=== PATIENT | female | born 1970 | race Caucasian/White ===

== ENCOUNTER 2023-07-29 07:28 | Outpatient (CLI) | payer OTHER, SELFPAY | END 2023-07-29 07:29 | disposition home or self-care (01) | PROVIDERS: PCP Family Medicine; Visit Provider Family Medicine | DX: E78.2 Mixed hyperlipidemia (principal); E66.01 Morbid (severe) obesity due to excess calories; Z68.43 Body mass index [BMI] 50.0-59.9, adult; Z11.59 Encounter for screening for other viral diseases | CPT/HCPCS: 80053; 80061; 82306; 84443; 86803 ==

== ENCOUNTER 2023-10-30 08:46 | Outpatient (CLI) | payer OTHER, SELFPAY | END 2023-10-30 08:47 | disposition home or self-care (01) | LOC: FRMREF 08:46 | PROVIDERS: PCP Family Medicine; Visit Provider Family Medicine | DX: E11.9 Type 2 diabetes mellitus without complications (principal); Z79.84 Long term (current) use of oral hypoglycemic drugs | CPT/HCPCS: 82043; 82570; 83036 ==

== ENCOUNTER 2024-01-28 14:55 | Outpatient (CLI) | payer OTHER, SELFPAY ==
--- NOTE | 2024-01-28 15:20 | CRLHL7_ITS ---
For Patients: As a result of the Century Cures Act, medical imaging exams and procedure reports are released immediately into your electronic medical record. You may view this report before your referring provider. If you have questions, please contact your health care provider. BILATERAL SCREENING MAMMOGRAM WITH COMPUTER-AIDED DETECTION AND TOMOSYNTHESIS TECHNIQUE: CC and MLO views were obtained. These mammographic images have been obtained using full-field digital technique. These mammographic images were interpreted with the benefit of computer-aided detection. Breast tomosynthesis was used in this interpretation. COMPARISON FILM: No comparison available. This is a new baseline study. FINDINGS: There are scattered areas of fibroglandular density. IMPRESSION: There is no radiographic evidence for malignancy. ASSESSMENT: BI-RADS Category 1: Negative RECOMMENDATION: Routine screening mammogram in 1 year. A lay language report of this examination will be provided to the patient. ELAN ANGEL M.D. Diagnostic Radiologist [email or web address] Transcribed: 2:[address]/Dictated by: Elan Angel MD @ 01/30/2024 9:13:00 AM (Electronically Signed)
== END 2024-01-28 14:56 | disposition home or self-care (01) ==
LOC: MAMMO 14:56
PROVIDERS: PCP Family Medicine; Visit Provider Family Medicine
DX: Z12.31 Encounter for screening mammogram for malignant neoplasm of breast (principal)
CPT/HCPCS: 77063; 77067

== ENCOUNTER 2024-01-29 12:56 | Outpatient (CLI) | payer OTHER, SELFPAY | END 2024-01-29 12:57 | disposition home or self-care (01) | LOC: NFLDREF 01-31 08:23 | PROVIDERS: PCP Family Medicine; Referring Provider Family Medicine; Visit Provider Family Medicine | DX: N30.00 Acute cystitis without hematuria (principal); N39.0 Urinary tract infection, site not specified; E11.9 Type 2 diabetes mellitus without complications | CPT/HCPCS: 87086; 87186 ==

== ENCOUNTER 2024-05-03 08:45 | Outpatient (CLI) | payer OTHER, SELFPAY | END 2024-05-03 08:46 | disposition home or self-care (01) | LOC: FRMREF 08:46 | PROVIDERS: PCP Family Medicine; Visit Provider Family Medicine | DX: E55.9 Vitamin D deficiency, unspecified (principal) | CPT/HCPCS: 82306 ==

== ENCOUNTER 2024-07-30 09:15 | Outpatient (RCR) | payer OTHER, SELFPAY | END 2024-10-27 07:49 | disposition home or self-care (01) | PROVIDERS: PCP Family Medicine; Visit Provider Family Medicine | DX: M54.12 Radiculopathy, cervical region (principal); Z51.89 Encounter for other specified aftercare | CPT/HCPCS: 97110; 97140; 97161 ==

== ENCOUNTER 2025-04-12 10:43 | Outpatient (CLI) | payer OTHER, SELFPAY | END 2025-04-12 10:44 | disposition home or self-care (01) | LOC: FRMREF 10:43 | PROVIDERS: PCP Family Medicine; Visit Provider Family Medicine | DX: E78.5 Hyperlipidemia, unspecified (principal); E11.9 Type 2 diabetes mellitus without complications | CPT/HCPCS: 80053; 80061; 82043; 82570; 82607 ==